=== PATIENT | male | born 1965 | race Two or more races ===

== ENCOUNTER 2017-10-14 15:12 | Emergency (ER) | payer OTHER ==
[~2017-10-14] VITALS: Ht 172.7 cm
[~2017-10-14 15:12] MED LIST: ATENOLOL25 MG; COZAAR25 MG; NORVASC5 MG
== END 2017-10-14 21:15 | disposition home or self-care (01) ==
LOC: ER 15:12
DX: R51 Headache (principal); R55 Syncope and collapse